=== PATIENT | female | born 1965 | race Caucasian/White ===

== ENCOUNTER 2017-01-14 18:55 | Emergency (ER) | payer BC ==
[~2017-01-14] VITALS: Ht 157.5 cm; Wt 53.6 kg
--- NOTE | ~2017-01-14 | CR72 ---
[facility]. [facility] A Service of [facility] & [facility] RADIOLOGY TEXT RESULTS PATIENT: DIGNA EAGLE LOCATION: SED : 65 UNIT #: [id number] AGE: [address]: Feliz Castano MD SEX: F ORDER DR: [id number] [address] [address] [id number] E MR#: [id number] Acc #: [id number] NAME: DIGNA EAGLE : 1965 SEX: F STUDY DATE/TIME: 01/14/2017 19:38 UNIT: SED ROOM: STUDY DESCRIPTION: CR Chest Single View Portable Attending Physician: Feliz Castano M.D. Ordering Physician: Feliz Castano M.D. Primary Care Physician: Geraldo Morrell M.D. MEDICAL IMAGING REPORT This report is preliminary unless electronic signature is present. EXAM AP portable chest 01/14/2017 HISTORY 51-year-old female with palpitations and heart racing intermittently which began 2 weeks ago. COMPARISON PA and lateral chest radiograph 08/24/2015. FINDINGS No acute airspace disease is seen. Heart size is normal. No pleural effusion or pneumothorax. No acute osseous abnormality. IMPRESSION No acute chest findings. Dictated by... Yane Rausch M.D. THIS IS AN ELECTRONICALLY VERIFIED REPORT Yane Rausch M.D. at 01/17/2017 8:38 AM LLH/pcl TD: 01/15/2017 15:24 JOB #: [id number] MEDICAL IMAGING REPORT Page 1 of 1
--- NOTE | ~2017-01-14 | EKG ---
PATIENT: DIGNA EAGLE UNIT #: [id number] Ventricular Rate: 109 BPM Atrial Rate: 109 BPM P-R Interval: 118 ms QRS Duration: 80 ms Q-T Interval: 324 ms QTC Calculation(Bezet): 436 ms P Applegate: 82 degrees Calculated R Applegate: 77 degrees Calculated T Applegate: 49 degrees Diagnosis Line: Sinus tachycardia Diagnosis Line: Nonspecific ST abnormality Diagnosis Line: Abnormal ECG Diagnosis Line: Diagnosis Line: Confirmed by RIDDHI LIU MD ([id number]) on Diagnosis Line: 01/17/2017 9:59:56 PM INTERPRETING MD: JOE
[~2017-01-14 18:55] MED LIST: BENZONATATE PO; BIRTH CONTROL PILL; CARVEDILOL; DICLOFENAC PO; EC-NAPROSYN500 MG PO; FLEXERIL PO; FLEXERIL10 M1 PO; IBUPROFEN PO; IBUPROFEN800 MG PO; MOTRIN600 M1 PO; NAPROXEN PO; NEXIUM; PREVACID PO; TESSALON PERLE100 M1 PO; VICODIN 5/500 T1 TAB PO; VOLTAREN75 MG PO; ZITHROMAX PO
[2017-01-14] MEDS ORDERED: TOPROL XL50 MG PO (19:08)
[2017-01-14] MEDS ORDERED: BUSPAR (19:08)
[2017-01-14 19:42] LABS: POC - CKMB 1.3 ng/mL (0.0-7.9)
[2017-01-14 19:43] LABS: POC - TROPONIN <0.05 ng/mL (<=0.05)
[2017-01-14 19:44] LABS: BASOPHIL% 0.5 % (0-2.5); DIFF IND NO; EOSINOPHIL% 0.9 % (0.0-7.0); HEMATOCRIT 40.3 % (35.0-45.0); HEMOGLOBIN 13.6 gm/dL (12.0-16.0); LYMPHOCYTE# 1.6 X10e3 (1.0-3.5); LYMPHOCYTE% 29.5 % (17.0-45.0); MEAN CELL VOLUME 91.5 FL (83-96); MEAN CORPUSCULAR HEMOGLOBIN 30.9 PG (28-34); MEAN CORPUSCULAR HGB CONC 33.8 g/dL (30-36); MEAN PLATELET VOLUME 7.8 FL (6.5-11.5); MONOCYTE# 0.6 X10e3 (0-1.0); MONOCYTE% 11.1 % (3.0-12.0); NEUTROPHIL# 3.1 X10e3 (1.5-7.1); PLATELET COUNT 210 X10e3 (140-420); WHITE BLOOD COUNT 5.4 X10e3 (4.0-10.5)
[2017-01-14 19:54] LABS: ALBUMIN SERUM 4.9 g/dL (3.5-5.0); BILIRUBIN,TOTAL 0.5 mg/dL (0.2-2.0); CALCIUM SERUM 9.8 mg/dL (8.4-10.2); CREATININE SERUM 0.8 mg/dL (0.6-1.4); GLOM FILT RATE Estimated 85.4 mL/min (>60); POTASSIUM 3.7 mmol/L (3.5-5.1); PROTEIN TOTAL SERUM 8.4 g/dL (6.0-8.3)
[2017-01-14 20:08] LABS: URINE SOURCE CLEAN CATCH
[2017-01-14 20:11] LABS: URINE APPEARANCE CLEAR; URINE BILIRUBIN NEG (NEG); URINE BLOOD TRACE-INTACT (NEG); URINE COLOR YELLOW; URINE GLUCOSE NEG (NORM); URINE KETONE NEG (NEG); URINE LEUKOCYTE ESTERASE NEG (NEG); URINE NITRATE NEG (NEG); URINE PROTEIN NEG (NEG); URINE UROBILINOGEN 0.2 MG/DL (NORM)
[2017-01-14 20:16] LABS: MICRO INDICATED? YES; URINE BACTERIA NEG (NEG); URINE WBC 0-2 /[HPF] (0-5)
[2017-01-14 20:17] LABS: CULTURE INDICATED? NO; URINE SQUAMOUS EPITHELIAL CELL OCCAS /[HPF]
[2017-01-14 20:21] LABS: AMPHETAMINE NEG (NEG); BARBITURATES NEG (NEG); BENZODIAZEPINES NEG (NEG); COCAINE NEG (NEG); MARIJUANA NEG (NEG); OPIATES NEG (NEG); TRICYCLIC ANTIDEPRESSANTS NEG (NEG); U METHADONE NEG (NEG)
== END 2017-01-14 21:05 | disposition home or self-care (01) ==
LOC: SED 18:55
DX: R00.2 Palpitations (principal); Z79.899 Other long term (current) drug therapy; Z88.1 Allergy status to other antibiotic agents
CPT/HCPCS: 36415; 71010; 80053; 80307; 81003; 82553; 84443; 84484; 85025; 93005; 96361; 96374; 99285; J2060